=== PATIENT | male | born 1965 | race Caucasian/White ===

== ENCOUNTER 2022-10-17 12:02 | Outpatient (REF) | payer OTHER, SELFPAY ==
[2022-10-17 13:10] LABS: MANUAL DIFF FLAG NO
[2022-10-17 13:29] LABS: Basophils Percent Auto 0.8 % (0-2); Eosinophils Absolute Auto 0.3 X10*3/uL (0.0-0.4); Eosinophils Percent Auto 6.2 % (0-4); Hematocrit 46.8 % (42.0-52.0); Hemoglobin 16.1 g/dl (14.0-18.0); Imm Gran Abs Auto 0.02 X10*3/uL (0.00-0.03); Imm Gran Pct Auto 0.4 % (0.0-0.4); Lymphocytes Absolute Auto 1.6 X10*3/uL (1.2-4.9); Lymphocytes Percent Auto 30.6 % (20-40); Mean Corpuscular HGB Conc 34.4 g/dl (31.0-36.0); Mean Corpuscular Hemoglobin 29.2 pg (27.0-33.0); Mean Corpuscular Volume 84.9 fL (80.0-98.0); Mean Platelet Volume 9.9 fL (9.4-12.4); Monocytes Absolute Auto 0.3 X10*3/uL (0.1-1.2); Monocytes Percent Auto 6.6 % (2-11); Neutrophils Absolute Auto 2.9 x10*3/uL (2.0-8.3); Neutrophils Percent Auto 55.4 % (45-73); Platelet Count 201 X10*3/uL (160-400); Red Blood Count 5.51 X10*6/uL (4.60-5.80); Red Cell Distribution Width 12.2 % (11.0-16.0); White Blood Count 5.2 X10*3/uL (4.8-10.8)
[2022-10-17 13:43] LABS: Alanine Aminotransferase 53 U/L (0-40); Albumin Level 4.6 g/dL (3.5-5.0); Alkaline Phosphatase 69 U/L (39-117); Anion Gap 11 (12-20); Aspartate Amino Transferase 42 U/L (5-37); Bilirubin Total 1.1 mg/dL (0.0-1.0); Blood Urea Nitrogen 9 mg/dL (9-16); C Reactive Protein 0.14 mg/dL (< or = 0.50); Calcium 9.6 mg/dL (8.4-10.2); Carbon Dioxide 30 mmol/L (22-29); Chloride 105 mmol/L (96-108); Cholesterol 272 mg/dL; Estimated Glomerular Filt Rate > 60; Glucose Random 99 mg/dL (60-115); HDL Cholesterol 41 mg/dL; LDL Cholesterol Calculated 183 mg/dl; Potassium 4.4 mmol/L (3.3-5.1); Sodium 142 mmol/L (135-145); Total Protein 7.4 g/dL (6.5-8.0); Triglycerides 241 mg/dL
[2022-10-17 13:59] LABS: PSA,Total (Free>4and<10) 0.75 ng/mL (0.00-4.00)
== END 2022-10-17 12:03 | disposition home or self-care (01) ==
LOC: HO.10HDL 12:02
PROVIDERS: Visit Provider Internal Medicine
DX: Z12.5 Encounter for screening for malignant neoplasm of prostate (principal); E78.00 Pure hypercholesterolemia, unspecified; N40.0 Benign prostatic hyperplasia without lower urinary tract symptoms; D64.9 Anemia, unspecified
CPT/HCPCS: 36415; 80053; 80061; 84153; 85025; 86140

== ENCOUNTER 2025-01-11 09:46 | Outpatient (AMB) | payer OTHER, SELFPAY ==
--- NOTE | 2025-01-11 10:11 | MHC.PC.OV ---
Vital Signs 01/11/25 10:17 01/11/25 12:50 Height 5 ft 8.5 in Weight 89.358 kg BMI 29.5 BP 146/90 H 150/88 H Respiration 16 Pulse 74 Pulse Source Pulse Oximeter Temp 97.8 F Temp Source Temporal Artery Scan Pulse Oximetry (%) 98 Oxygen Delivery Method Room Air Intake Visit Reasons: routine - Dr. Cedeño pt. - see comments Web Marketing Specialist Required: No Accompanied by: Self / Same As Patient Allergies No Known Allergies Allergy (Verified 01/11/25 10:11) Medication List - Last Reconciled 01/11/25 by DEANDRE Brownlee No Known Home Meds Tobacco use date assessed: 01/11/25 Dental Screening Dental Screen Date: 01/11/25 Did you have a dental visit in the last 12 months?: Yes Did you have a dental problem in the last 6 months where you did not have access to dental care?: No Was dental information given to patient?: No HPI HPI Comments History of Present Illness Details 59-year-old male with history of tinnitus, BPH, HTN, hyperlipidemia, elevated liver transaminases presents to the office today for management of chronic conditions, evaluation of multiple complaints, to establish care, annual physical exam. He currently lives at home with his and 13-year-old daughter and feels safe there. 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 He admits he does not follow a healthy diet and does not exercise. Reports occasional alcohol use. Has never smoked cigarettes. No drug use including marijuana. Hypertension-has a history of elevated blood pressures but has declined antihypertensives in the past reporting that he has wanted to work on lifestyle. Last blood pressure from with prior PCP was 144/92. Initial blood pressure in the office today is 146/90. On recheck with a manual cuff, blood pressure remains 150/86. Tinnitus/deviated septum-reports he can only breathe out of 1 nostril and has significant snoring as reported by his . No apneic episodes reported. Has not followed with ENT Concerns: Chest pain-reports this is constant and has difficulty describing this, though states it is sometimes a minor sting, otherwise unable to describe. He denies any significant chest pressure. No associated symptoms including headaches, vision changes, radiation of the pain, dyspnea, lightheadedness, palpitations.. It is nonexertional. He does have family history of CAD/NSTEMI and his father though reports he was a smoker. Atypical nevi-left abdomen and right flank. Reports he noticed these about 6-12 months ago and have been increasing in size. No pruritus or bleeding. He also has a flat brown lesion on the left forearm that has been present for several years. He only sometimes wears sunscreen. He has never been for a skin check. Perianal itch-has a known hemorrhoid but states this does not feel like a hemorrhoid. Reports he does have occasional hematochezia noted on toilet paper as well as some slight incontinence of stool though reports this is not common. He has never undergone screening colonoscopy Bump on left scrotum-noticed 5 months ago. No pain, mobility. He does feel has grown slightly. No dysuria, hematuria, ejaculating, or penile discharge. Reports monogamous with his . Chronic low back pain-ongoing years. Now has had right lower extremity sciatica ongoing for 5 days. Denies any injury. No paresthesias, saddle anesthesia, bowel/bladder dysfunction other than that noted above. Low suspicion for cauda equina. Has been having some good relief with ibuprofen and Tylenol. He does come into the office today utilizing a walker. ROS: General: No fevers, malaise, unintentional weight loss HEENT: No blurred vision, diplopia. No sore throat, nasal congestion, rhinorrhea, sinus pain, ear pain. No hearing loss Neck - no adenopathy Cardiovascular: No chest pain, palpitations, or leg edema Respiratory: No shortness of breath, wheezing, cough GI: No dysphagia, odynophagia, globus sensation. No abdominal pain, nausea, vomiting, diarrhea, constipation, melena, hematochezia : No dysuria, hematuria, increased urinary frequency, decreased urinary output. No testicular swelling or pain. No penile discharge MSK: No myalgia, back pain, arthralgias Neuro: No headaches, weakness, paresthesias Psych: no depression/anxiery. No AH/VH. No SI/HI Skin: No rashes or lesions EXAM: Constitutional - Awake and Alert, No apparent distress Eyes - PERRLA, EOMI. Anicteric Ears - external ears normal, canals clear, TMs intact and pearly osborn with good cone of light Nose- septum midline, nares clear, no sinus tenderness Mouth/throat- mucosa moist, tongue and uvula midline, no erythema/edema or tonsillar adenopathy. Neck-trachea midline, thyroid symmetric without palpable nodules, no adenopathy Cardiovascular - S1S2, RRR, No edema Respiratory - Normal lung expansion, Normal respiratory effort, No respiratory distress, CTA bilaterally Gastrointestinal - NT / ND; +BS; No rebound or guarding. External hemorrhoid noted at 09:00 without any bleeding or thrombosis. 1 cm fissure at 03:00 . 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 R testicle with firm mass on the superior aspect of the teste, nontender to palpation. No erythema or warmth. 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 No midline tenderness to palpation. Positive right-sided paraspinal tenderness to palpation at the level of about L2-L5 into the SI joint. Positive right-sided straight leg raise Skin - Warm/Dry, no concerning lesions Neurological - Alert & oriented x3, CN II-XII in tact, 5/5 strength BUE and BLE, 2+ patellar reflexes, sensation intact Psychological - Appropriate affect . Multi colored nevi about 8 mm in size of the right flank and left lower quadrant. Borders regular [facility] Medical History (Updated 01/11/25 @ 12:50 by DEANDRE Brownlee) HTN (hypertension) BPH (benign prostatic hyperplasia) Chronic low back pain Surgical History (Updated 01/11/25 @ 10:38 by DEANDRE Brownlee) No pertinent past surgical history Family History (Updated 01/11/25 @ 10:38 by DEANDRE Brownlee) Father CAD (coronary artery disease) Myocardial infarct Cancer Mother Stroke ESRD (end stage renal disease) Social History Housing: House Patient Tobacco Use Status: Never used Tobacco e-Cigarette/Vaping Use: Never Used service: No Current occupational status: retired Cognitive needs: No Hearing needs: No Vision needs: Yes (Rx glasses) Questionnaire PHQ-9 Over the last 2 weeks, how often have you been bothered by any of the following problems? 1. Little interest or pleasure in doing things: not at all 2. Feeling down, depressed, or hopeless: not at all 3. Trouble falling or staying asleep, or sleeping too much: not at all 4. Feeling tired or having little energy: not at all 5. Poor appetite or overeating: not at all 6. Feeling bad about yourself - or that you are a failure or have let yourself or your family down: not at all 7. Trouble concentrating on things, such as reading the newspaper or watching television: not at all 8. Moving or speaking so slowly that other people could have noticed. Or the opposite - being so fidgety or restless that you have been moving around a lot more than usual: not at all 9. Thoughts that you would be better off or of hurting yourself in some way: not at all Total score: 0 Source: Developed by Drs. Hadley Luz, Kourtney Soliz, Miguel Angel Joseph and colleagues, with an educational katie from [employer]. Thrive Questionnaire Date Thrive assessed: 01/11/25 I am a: Patient What is your living situation today?: I have a steady place to live Within the past 12 months, did the food you bought not last and you didn't have the money to get more?: Never true Within the past 12 months, did you worry whether your food would run out before you got money to buy more?: Never true Do you have trouble paying for medicines?: No Do you have trouble getting transportation to medical appointments?: No Do you have trouble paying your heating and electricity bill?: No Do you have trouble taking care of your child, family member or friend?: No Do you have trouble with day-to-day activities such as bathing, preparing meals, shopping, managing finances, etc.?: No Are you currently unemployed and looking for a job?: No Are you interested in more education?: No Please select the resources that you would like help with: None THRIVE Score: 0 KISHOR-7 AMB Questionnaire KISHOR-7 Date KISHOR - 7 assessed: 01/11/25 Feeling nervous, anxious, or on edge: 0 = Not at all Not being able to stop or control worryin = Not at all Worrying too much about different things: 0 = Not at all Trouble relaxin = Not at all Being so restless that it is hard to sit still: 0 = Not at all Becoming easily annoyed or irritable: 0 = Not at all Feeling afraid as if something awful might happen: 0 = Not at all Total KISHOR-7 score (0-4 normal; 5-9 mild; 10-14 moderate; 15-21 severe): 0 Source: Developed by Drs. Hadley Luz, Kourtney Soliz, Miguel Angel Joseph and colleagues, with an educational katie from [employer]. Physical exam (Primary Care) Vital Signs: Last Vital Signs Temp 97.8 F 01/11/25 10:17 Pulse 74 01/11/25 10:17 Resp 16 01/11/25 10:17 BP 146/90 H 01/11/25 10:17 Pulse Ox 98 01/11/25 10:17 Oxygen Delivery Method Room Air 01/11/25 10:17 BMI result Body Mass Index 29.5 Tobacco/Smoking Status: Tobacco use Status Tobacco use date assessed 01/11/25 01/11/25 10:20 Patient Tobacco Use Status Never used Tobacco 01/11/25 10:20 e-Cigarette/Vaping Use Never Used 01/11/25 10:20 PHQ-9: PHQ-9 Score PHQ-9: Total score 0 01/11/25 10:44 Thrive Assessment: Date of Thrive Assessment Date Thrive assessed 01/11/25 01/11/25 10:20 Coding Level of Care Code Est Pt Level 4 (40712) New Pt Prev Care 40-64y(82388) Diagnoses Encounter for routine history and physical examination Z00.00 HTN (hypertension) I10 Chest pain R07.9 Anal fissure K60.2 External hemorrhoid K64.4 Deviated septum J34.2 Sciatica M54.30 Assessment & Plan Assessment & Plan (1) Encounter for routine history and physical examination: Code(s): Z00.00 - Encounter for general adult medical examination without abnormal findings Plan: 59-year-old male presenting for annual exam. Plan as below (2) HTN (hypertension): Code(s): I10 - Essential (primary) hypertension Category: Medical Plan: Uncontrolled. Patient declines antihypertensive at this time. Counseled on the importance of blood pressure control to reduce risk of cardiovascular complications. He would like to follow-up in 1 month after lifestyle changes are made to recheck blood pressure (3) Chest pain: Code(s): R07.9 - Chest pain, unspecified Category: Medical Plan: Vague historian. EKG in the office today shows NSR, rate 65, no ST-T wave abnormality. Given family history of coronary artery disease, he is referred for stress test (4) Anal fissure: Code(s): K60.2 - Anal fissure, unspecified Category: Medical Plan: As well as external hemorrhoid. He is given prescription for Anusol. Given areas quite bothersome, he is referred to General surgery (5) External hemorrhoid: Code(s): K64.4 - Residual hemorrhoidal skin tags Category: Medical Plan: Anusol as above (6) Deviated septum: Code(s): J34.2 - Deviated nasal septum Category: Medical Plan: Referred to ENT given significant snoring. (7) Sciatica: Code(s): M54.30 - Sciatica, unspecified side Category: Medical Plan: Declines referral to physical therapy. Given exercises to perform at home. He continue using ibuprofen and Tylenol. Given prescription for tizanidine to use as needed. Counseled on side effects Plan Routine screening labs as ordered below Continue with screening colonoscopies and PSA Continue following for annual skin exams and use sun protection Referred to dermatology for evaluation of atypical nevi Annual eye exams Wear seat belt in car Recommend regular exercise and healthy diet Follow up in 1 month for blood pressure recheck Orders: Orders CA cardiopulmonary stress test Today R07.9 - Chest pain, unspecified, Z82.49 - Family history of ischemic heart disease and other diseases of the circulatory system Basic Metabolic Panel Today Z00.00 - Encounter for general adult medical examination without abnormal findings Complete Blood Count Auto Diff Today R07.9 - Chest pain, unspecified, Z00.00 - Encounter for general adult medical examination without abnormal findings, Z82.49 - Family history of ischemic heart disease and other diseases of the circulatory system Liver Panel Today R07.9 - Chest pain, unspecified, Z00.00 - Encounter for general adult medical examination without abnormal findings, Z82.49 - Family history of ischemic heart disease and other diseases of the circulatory system Prostate Specific Antigen Today R07.9 - Chest pain, unspecified, Z00.00 - Encounter for general adult medical examination without abnormal findings, Z82.49 - Family history of ischemic heart disease and other diseases of the circulatory system US scrotum Today N50.89 - Other specified disorders of the male genital organs, Z00.00 - Encounter for general adult medical examination without abnormal findings Hemoglobin A1c Today R07.9 - Chest pain, unspecified, Z00.00 - Encounter for general adult medical examination without abnormal findings, Z82.49 - Family history of ischemic heart disease and other diseases of the circulatory system Lipid Panel Today R07.9 - Chest pain, unspecified, Z00.00 - Encounter for general adult medical examination without abnormal findings, Z82.49 - Family history of ischemic heart disease and other diseases of the circulatory system Referrals Ear/Nose/Throat Referral I10 - Essential (primary) hypertension, J34.2 - Deviated nasal septum, M54.30 - Sciatica, unspecified side, N40.0 - Benign prostatic hyperplasia without lower urinary tract symptoms, R06.83 - Snoring, Z00.00 - Encounter for general adult medical examination without abnormal findings Gastroenterology Referral Z12.11 - Encounter for screening for malignant neoplasm of colon General Surgery Referral K60.2 - Anal fissure, unspecified, K64.4 - Residual hemorrhoidal skin tags Dermatology Referral D22.9 - Melanocytic nevi, unspecified Medications: New tizanidine 4 mg PO TID PRN 30 caps 0RF Sciatica hydrocortisone 2.5% 1 appl [place] BID-QID PRN 30 grams 0RF hemorrhoids, itching
[2025-01-11 10:17] VITALS: BP 146/90; PULSE 74; RESP 16; TEMP 36.6; O2SAT 98; BMI 29.5
[2025-01-11 12:50] VITALS: BP 150/88
== END 2025-01-11 11:11 | disposition home or self-care (01) ==
PROVIDERS: PCP Physician Assistant; Visit Provider Physician Assistant
DX: Z00.00 Encounter for general adult medical examination without abnormal findings (principal); I10 Essential (primary) hypertension; R07.9 Chest pain, unspecified; K60.2 Anal fissure, unspecified; K64.4 Residual hemorrhoidal skin tags; J34.2 Deviated nasal septum; M54.31 Sciatica, right side

== ENCOUNTER → 2025-01-11 09:46 | Outpatient (BNVA) | payer OTHER, SELFPAY | PROVIDERS: PCP Physician Assistant; Visit Provider Physician Assistant | DX: Z00.00 Encounter for general adult medical examination without abnormal findings (principal); Z76.89 Persons encountering health services in other specified circumstances; I10 Essential (primary) hypertension; R07.9 Chest pain, unspecified; K60.2 Anal fissure, unspecified; K64.4 Residual hemorrhoidal skin tags; J34.2 Deviated nasal septum; M54.30 Sciatica, unspecified side; Z13.30 Encounter for screening examination for mental health and behavioral disorders, unspecified; Z13.39 Encounter for screening examination for other mental health and behavioral disorders | CPT/HCPCS: 99202; 99386 ==